=== PATIENT | male | born 1980 | race Caucasian/White ===

== ENCOUNTER 2019-07-30 17:52 | Emergency (ER) | payer MEDICARE, OTHER ==
[~2019-07-30] VITALS: Ht 172.7 cm; Wt 81.8 kg
[~2019-07-30 17:52] MED LIST: NOCURR
[2019-07-30] MEDS ORDERED: KETOROLAC TROMETHAMINE 30 MG/ML VIAL IM ONE (18:30)
[2019-07-30 20:11] VITALS: BP 140/80
== END 2019-07-30 20:17 | disposition home or self-care (01) ==
LOC: EMS 17:54
DX: S20.212A Contusion of left front wall of thorax, initial encounter (principal); V79.40XA Driver of bus injured in collision with unspecified motor vehicles in traffic accident, initial encounter; Y93.89 Activity, other specified; Y92.89 Other specified places as the place of occurrence of the external cause; Y99.8 Other external cause status
CPT/HCPCS: 71101; 96372; 99283; J1885